=== PATIENT | female | born 1990 | race African-American/Black ===

== ENCOUNTER 2016-08-25 12:30 | Emergency (ER) | payer OTHER ==
[~2016-08-25] VITALS: Ht 170.2 cm; Wt 97.5 kg
[~2016-08-25 12:30] MED LIST: NASONEX17 GM NASB; PANTOPRAZOLE SO40 M1 PO; PARAGARD T 3801 EACH; VIBRAMYCIN100 MG PO
--- NOTE | 2016-08-25 13:03 | ED GI/GU/ABDOMINAL COMPLAINT ---
History of Present Illness General Chief Complaint: General Adult Stated Complaint: VAG BLEED Source: patient, old records Exam Limitations: no limitations Vital Signs & Intake/Output Vital Signs & Intake/Output Vital Signs Date Time Temp Pulse Resp B/P B/P Pulse O2 O2 Flow FiO2 Mean Ox Delivery Rate 08/25 1458 98.6 76 18 126/84 98 Room Air 08/25 1306 98.3 89 15 134/74 100 Room Air Allergies Coded Allergies: Penicillins (HIVES 07/15/15) amoxicillin (HIVES 07/15/15) Reconcile Medications Copper (Paragard T 380-A) 1 EACH IUD CONTROL (Reported) Doxycycline Hyclate (Vibramycin) 100 MG CAPSULE 1 CAP PO BID cellulitis Mometasone Furoate (Nasonex) 17 GM SPRAY.PUMP 2 SPRAY NASB DAILY congestion Pantoprazole Sodium 40 MG TABLET.DR 1 TAB PO DAILY PRN GI (Reported) Triage Note: PT TO ED FOR VAG BLEEDING, STATING SHE HAD HER PERIOD APPROX 2-3 WEEKS AGO AND STARTED BLEEDING AGAIN YESTERDAY, ALSO C/O RLQ CRAMPS. REPORTING SHE HASN'T NEEDED TO USE A PAD OR TAMPON - STATING SHE HAS ONLY NOTICED BLOOD WHEN SHE WIPES. Triage Nurses Notes Reviewed? yes LMP (ages 10-50): 08/14 ? n Is pt currently ? No Onset: Abrupt Duration: day(s): (2), constant, waxing and waning Timing: recent history Quality/Severity: cramping Severity Numbers: 4 Location: generalized abdomen Radiation: no radiation Activities at Onset: none Prior Abdominal Problems: none No Modifying Factors: none Associated Symptoms: denies HPI: This is a 26-year-old female presents to the ER for evaluation complaining of sudden onset of light vaginal spotting since yesterday. Her last menstrual cycle ended on August 14 and was normal for her. She states that she always has lower abdominal cramping that is no worse than normal. She has not needed to use a pad or tampon. She denies any urinary symptoms dysuria urgency frequency or hematuria. She denies chance of no back pain fever chills. No modifying factors no dizziness lightheadedness or associated symptoms otherwise. she has an iud, she is not on control (KYLE ARTEAGA,DONNA) Past History Travel History Traveled to [place] past 21 day No Medical History Any Pertinent Medical History? see below for history Neurological: NONE EENT: NONE Cardiovascular: NONE Respiratory: NONE Gastrointestinal: GERD Hepatic: NONE Renal: NONE Musculoskeletal: NONE Psychiatric: NONE Endocrine: NONE Blood Disorders: NONE Cancer(s): NONE Surgical History Surgical History: non-contributory Psychosocial History What is your primary language Slovak Tobacco Use: Never used ETOH Use: denies use Illicit Drug Use: denies illicit drug use Family History Hx Contributory? No (DONNA DAMON) Review of Systems Review of Systems Constitutional: Reports: see HPI. All Other Systems: Reviewed and Negative Comments Review of systems: See HPI, All other systems negative. Constitutional, no chills no fever, no malaise HEENT: no sore throat no congestion, Cardiovascular: No chest pain , no palpitation Skin: no rashes, no change in skin Respiratory: No dyspnea no cough no sputum GI: No nausea no vomiting, no diarrhea, no bloating/constipation : No dysuria No hematuria, no frequency, no discharge Muscle skeletal: No joint pain, no joint swelling, no back pain Neurologic: No numbness , no headache Psych: No stress Heme/endocrine: No bruising Immunology: No lymphadenopathy (DONNA DAMON) Physical Exam Physical Exam General Appearance: well developed/nourished, no apparent distress, alert Gastrointestinal: soft, non-tender Comments: Well-developed well-nourished person in no acute distress HEENT: Normal EENT exam; PERRL, EOMI, no nystagmus. HEAD is atraumatic. moist mucous membranes. Neck: Supple, normal range of motion Back: Nontender, no CVA tenderness. Full range of motion Cardiovascular: Regular rate and rhythms no murmurs rubs Respiratory:No respiratory distress. Patient speaking in full complete sentences. Breath sounds clear to auscultation bilaterally: NO W/R/R Abdomen: Soft, nontender nondistended, no appreciable organomegaly. Normal bowel sounds. No rebound/guarding, . Extremity: No edema, full range of motion of extremities Neuro: Alert oriented x3, motor sensory normal. There were no obvious focal neurologic abnormalities. Skin: No appreciable rash on exposed skin, skin is warm and dry. Psych: Mood and affect is normal, memory and judgment is normal. Core Measures ACS in differential dx? No Severe Sepsis Present: No Septic Shock Present: No (DONNA DAMON) Progress Differential Diagnosis: ectopic , intrauterine , kidney stone, ovarian cyst, ovarian torsion, threatened AB, UTI/pyelo, endometriosis Plan of Care: Orders Procedure Date/time Status URINE 08/25 1243 Complete URINALYSIS 08/25 1243 Complete Laboratory Tests 08/25/16 1300: Urine Color YEL, Urine Clarity CLEAR, Urine pH 6.0, Ur Specific [place] 1.025, Urine Protein NEG, Urine Ketones NEG, Urine Nitrite NEG, Urine Bilirubin NEG, Urine Urobilinogen 0.2, Ur Leukocyte Esterase NEG, Ur Microscopic EXAM NOT REQUIRED, Urine Hemoglobin NEG, Urine Glucose NEG, Urine Test NEGATIVE Labs sent patient denies any symptoms at this time declining anything for pain offered case was discussed with Dr. Leigh I discussed with the patient at length all of their results. I had an extensive conversation regarding need for close follow up with their primary care physician this week as well as return precautions. I answered all of their questions, they feel comfortable with the plan and follow-up care. (KYLE ARTEAGA,DONNA) Diagnostic Imaging: Viewed by Me: Ultrasound. Discussed w/RAD: Ultrasound. Radiology Impression: PATIENT: CHRISTA PRATT PRESENT AGE: 26 PATIENT ACCOUNT NO: [id number] : 91 LOCATION: [facility] ORDERING PHYSICIAN: DONNA ARTEAGA SERVICE DATE: 08/25/16 EXAM TYPE: US - US-TRANSVAGINAL EXAMINATION: US PELVIS COMPLETE CLINICAL INFORMATION: Right lower quadrant pain. Vaginal bleeding. COMPARISON: None TECHNIQUE: Transabdominal and transvaginal pelvic sonography was performed. FINDINGS: The uterus is anteverted, measuring 8.5 x 4.7 x 4.8 cm. Endometrial stripe thickness is 0.4 cm. No suspicious uterine mass. Intrauterine device demonstrated within the endometrial cavity. The right ovary measures 4.2 x 2.7 x 2.3 cm, volume 13.6 mL. Scattered right ovarian follicles. There is internal Doppler flow within the right ovary. No suspicious right ovarian or adnexal mass. The left ovary measures 3.1 x 2.0 x 3.0, volume 9.4 mL. Scattered left ovarian follicles. There is internal Doppler flow within the left ovary. No suspicious left ovarian or adnexal mass. No free fluid within the cul-de-sac. IMPRESSION: 1. No evidence of ovarian torsion. 2. Scattered bilateral ovarian follicles without suspicious mass or cystic lesion. DICTATED BY: CATHERINE KAUR MD DATE/TIME DICTATED:1427 LACE PAPER MACHINE OPERATOR:DOE DATE/TIME TRANSCRIBED:08/25/161427 CONFIDENTIAL, DO NOT COPY WITHOUT APPROPRIATE AUTHORIZATION. <Electronically signed in Other Vendor System> SIGNED BY: CATHERINE KAUR MD 08/25/16 1448 Initial ED EKG: none (DONNA DAMON) Departure Departure Time of Disposition: 1450 Disposition: HOME OR SELF CARE Condition: Stable Clinical Impression Primary Impression: Dysmenorrhea Referrals: SHAWN RIZVI (PCP/Family) SHANNAN MARTIN,MADDIE Robledo Additional Instructions: follow up with your hospital superintendent dr harris on saturday. return at anytime sooner with any concerns Departure Forms: Customer Survey General Discharge Information (DONNA DAMON) PA/DOOR TECHNICIAN Co-Sign Statement Statement: ED Attending supervision documentation- I saw and evaluated the patient. I have also reviewed all the pertinent lab results and diagnostic results. I agree with the findings and the plan of care as documented in the PA's/DOOR TECHNICIAN's documentation. x I have reviewed the ED Record and agree with the PA's/DOOR TECHNICIAN's documentation. [] Additions or exceptions (if any) to the PAs/DOOR TECHNICIAN's note and plan are summarized below: [] (MAG MARTIN,RILEY)
--- NOTE | 2016-08-25 14:48 | ULTRASOUND REPORT ---
EXAMINATION: US PELVIS COMPLETE CLINICAL INFORMATION: Right lower quadrant pain. Vaginal bleeding. COMPARISON: None TECHNIQUE: Transabdominal and transvaginal pelvic sonography was performed. FINDINGS: The uterus is anteverted, measuring 8.5 x 4.7 x 4.8 cm. Endometrial stripe thickness is 0.4 cm. No suspicious uterine mass. Intrauterine device demonstrated within the endometrial cavity. The right ovary measures 4.2 x 2.7 x 2.3 cm, volume 13.6 mL. Scattered right ovarian follicles. There is internal Doppler flow within the right ovary. No suspicious right ovarian or adnexal mass. The left ovary measures 3.1 x 2.0 x 3.0, volume 9.4 mL. Scattered left ovarian follicles. There is internal Doppler flow within the left ovary. No suspicious left ovarian or adnexal mass. No free fluid within the cul-de-sac. IMPRESSION: 1. No evidence of ovarian torsion. 2. Scattered bilateral ovarian follicles without suspicious mass or cystic lesion.
[2016-08-25 14:58] VITALS: BP 126/84
== END 2016-08-25 14:58 ==
LOC: ERH 12:30
DX: N94.6 Dysmenorrhea, unspecified (principal)
CPT/HCPCS: 81003; 81025

== ENCOUNTER 2017-04-19 10:07 | Emergency (ER) | payer OTHER ==
[~2017-04-19] VITALS: Ht 170.2 cm; Wt 104.3 kg
[~2017-04-19 10:07] MED LIST changes: +AMOXICILLIN875 M1 PO; +BACTRIM DS TAB1 EACH PO; +BENTYL10 M1 PO; +DOXYCYCLINE HY100 M4 PO; +ZOFRAN ODT4 M1 SL
[2017-04-19 10:54] VITALS: BP 116/81
--- NOTE | 2017-04-19 11:19 | ED SKIN/ALLERGY COMPLAINT ---
History of Present Illness General Chief Complaint: Skin Rash/ Abcess Stated Complaint: RASH ON RT HAND X 1.5 WEEKS Source: patient Exam Limitations: no limitations Vital Signs & Intake/Output Vital Signs & Intake/Output Vital Signs Date Time Temp Pulse Resp B/P B/P Pulse O2 O2 Flow FiO2 Mean Ox Delivery Rate 04/19 1054 97.3 62 16 116/81 98 Room Air Allergies Coded Allergies: Penicillins (HIVES 07/15/15) amoxicillin (HIVES 07/15/15) Reconcile Medications Copper (Paragard T 380-A) 1 EACH IUD CONTROL (Reported) Dicyclomine Hydrochloride (Bentyl) 10 MG CAPSULE 1 CAP PO TID PRN abdominal pain Hydroxyzine Hydrochloride (Atarax) 50 MG TAB 1 TAB PO TID PRN ITCHING Ondansetron (Zofran Odt) 4 MG TAB.RAPDIS 1 TAB SL TID PRN nausea Triamcinolone Acetonide 0.1 % CREAM..G. 1 AISSATOU TOP BID PRN RASH/ITCH Triage Note: COMPLAINS OF ITCHY RASH BETWEEN HER FINGERS ON HER R HAND FOR 1.5 WEEKS, DID NOT CALL PMD Triage Nurses Notes Reviewed? yes Onset: Gradual Duration: week(s): (1.5), constant, continues in ED Timing: single episode today Severity: mild, moderate Severity Numbers: 5 Location: extremities (BILATERAL HANDS ) Possible Factors: no cause identified No Modifying Factors: none Associated Symptoms: change in skin texture, rash LMP (ages 10-50): unknown : No Patient currently breastfeeds: No HPI: 26-year-old female past medical history of GERD presents for evaluation of an itchy rash to her bilateral hands. Patient states she first noticed the rash about a week and a half ago and has been persistent. The rash is located in the interim places of her fingers and dorsum of the hand. It is itchy. She feels like her skin is dry. She is not been using any new lotions creams. No new medications or known triggering events. She has not taken any medicine for her symptoms. No one in her household has similar symptoms. No rashes anywhere else. Fevers numbness, tingling, discharge, swelling or any other associated symptoms. Past History Travel History Traveled to [place] past 21 day No Medical History Any Pertinent Medical History? see below for history Neurological: NONE EENT: NONE Cardiovascular: NONE Respiratory: NONE Gastrointestinal: GERD Hepatic: NONE Renal: NONE Musculoskeletal: NONE Psychiatric: NONE Endocrine: THYROID CYST Blood Disorders: NONE Cancer(s): NONE SCENIC ARTIST/Reproductive: remote hx of abnl paps as a teen Surgical History Surgical History: non-contributory Psychosocial History What is your primary language [place] Tobacco Use: Never used ETOH Use: denies use Illicit Drug Use: denies illicit drug use Family History Hx Contributory? No Review of Systems Review of Systems Constitutional: Reports: no symptoms. EENTM: Reports: no symptoms. Respiratory: Reports: no symptoms. Cardiovascular: Reports: no symptoms. GI: Reports: no symptoms. Genitourinary: Reports: no symptoms. Musculoskeletal: Reports: no symptoms. Skin: Reports: see HPI, dryness, rash. Neurological/Psychological: Reports: no symptoms. Hematologic/Endocrine: Reports: no symptoms. Immunologic/Allergic: Reports: no symptoms. All Other Systems: Reviewed and Negative Physical Exam Physical Exam General Appearance: well developed/nourished, no apparent distress, alert, awake Head: atraumatic, normal appearance Eyes: Bilateral: normal appearance, EOMI. Ears, Nose, Throat: normal pharynx, normal ENT inspection, hearing grossly normal Neck: normal inspection, full range of motion Respiratory: no respiratory distress Cardiovascular: normal peripheral pulses Peripheral Pulses: 2+ radial (R), 2+ radial (L) Gastrointestinal: soft, non-tender Back: normal inspection, normal range of motion, no vertebral tenderness Extremities: normal inspection, normal range of motion, no edema Neurologic/Psych: no motor/sensory deficits, awake, alert, oriented x 3, normal gait, normal mood/affect Skin: intact, normal color, warm/dry, rash Skin Problem Location: BILATERAL HANDS Comments: There is dry scaling skin on the dorsum of the hands AND THE INTERWEB SPACES OF THE FINGERSs. No erythema or discharge.. No swelling. No burrows. There are some excoriations. Full range of motion of the hand and fingers intact. Neurovascular supply is intact. Progress Differential Diagnosis: abscess/cellulitis, allergic reaction, anaphylaxis, contact dermatitis, drug reaction, piyriasis rosea, scarlet fever, urticaria, TINEA, SCABIES Plan of Care: Patient seen and evaluated. She has a dry scaling rash on the bilateral hands and intermittent pain is. There is no burrows. No discharge swelling or erythema. Patient will be treated with hydroxyzine for itching and topical Kenalog. Advised her to keep her hands clean and dry. Moisturize skin daily after showering and washing hands. Ramsay for signs of infection such as redness swelling discharge pain. DISCUSSED RETURN precautions. Make a follow- up with her primary care doctor. Patient is nontoxic-appearing and agrees with the plan. Departure Departure Disposition: HOME OR SELF CARE Condition: Stable Clinical Impression Primary Impression: Contact dermatitis Qualifiers: Contact dermatitis type: unspecified Contact dermatitis trigger: unspecified trigger Qualified Code: L25.9 - Unspecified contact dermatitis, unspecified cause Referrals: Jennifer Saavedra APRN (PCP/Family) Additional Instructions: T3 skin clean and dry. Use hydroxyzine every 8 hours as needed for itching. This may cause drowsiness. Apply steroid cream twice a day sparingly as needed. Monitor symptoms Ramsay for signs of infection like redness swelling discharge pain. Follow-up with your primary care doctor this week. Return to the emergency department with any concerns. Departure Forms: Customer Survey General Discharge Information Prescriptions: Current Visit Scripts Triamcinolone Acetonide 1 AISSATOU TOP BID PRN RASH/ITCH #1 TUBE Hydroxyzine Hydrochloride (Atarax) 1 TAB PO TID PRN ITCHING #30 TAB
[2017-04-19] MEDS ORDERED: HYDROXYZINE HCL50 M1 PO (11:32)
[2017-04-19] MEDS ORDERED: TRIAMCINOLONE A15 G1 TOP (11:32)
== END 2017-04-19 11:46 ==
LOC: ERH 10:07
DX: L25.9 Unspecified contact dermatitis, unspecified cause (principal)